=== PATIENT | female | born 1975 | race Caucasian/White ===

== ENCOUNTER → 2021-07-19 08:19 | Outpatient (BNV) | payer OTHER, MEDICAID, SELFPAY | PROVIDERS: PCP Registered Nurse; Referring Provider Allergy & Immunology; Visit Provider Internal Medicine Medical Oncology | DX: D47.2 Monoclonal gammopathy (principal) | CPT/HCPCS: 99204; 99213 ==

== ENCOUNTER 2021-07-25 16:27 | Outpatient (REF) | payer OTHER, SELFPAY ==
--- NOTE | ~2021-07-25 | XR_ITS ---
EXAMINATION: XR SKELETAL SURVEY CLINICAL INFORMATION: Elevated IgG level. COMPARISON: None TECHNIQUE: Whole body bone survey was performed. FINDINGS: SKULL: No lytic or sclerotic process seen. The visualized sinuses and mastoid air cells are well aerated. LATERAL CERVICAL NECK: There is mild straightening of the cervical lordosis. Loss of C5-C6 with mild ventral spondylosis is seen at the C5-C6 and C6-C7 disc levels. No fracture, lytic or sclerotic process seen. CHEST: The lungs are well expanded and clear. The heart size and pulmonary vascularity are normal. No gross bony abnormality is seen. DORSAL SPINE: There is a maintained thoracic kyphosis. The vertebral heights, alignment and disc heights are normal. No visible acute fracture, dislocation or lytic process is seen. The paravertebral soft tissues are normal. No lytic or sclerotic process is seen. LUMBAR SPINE: There is an exaggerated lumbar lordosis. The vertebral heights and alignment are normal. There is mild loss of L5-S1 and L4-L5 disc heights. There is no visible acute fracture, dislocation or lytic process seen. There is minimal dextroscoliosis of the dorsolumbar spine. There is moderate bilateral L5-S1 facet joint hypertrophy and arthropathy. AP PELVIS: There is normal symmetry of the bilateral SI joints and hip joints. No visible fracture or dislocation. BILATERAL FEMORA: There is a small lucency with sclerotic-appearing dc in the femoral neck bilaterally, likely benign cystic changes. No lytic area is seen in the femur to suspect lesions. BILATERAL TIBIAE AND FIBULAE: There is no lytic or sclerotic lesion seen in the tibiae and fibulae. The soft tissues are normal. The ankle mortise is normal. BILATERAL HUMERI: Unremarkable. BILATERAL RADII AND ULNAE: There are no visible lytic or sclerotic lesions seen. No fracture. The soft tissues are normal. XR/XR bone survey IMPRESSION: Unremarkable whole body bone survey.
== END 2021-07-25 16:28 | disposition home or self-care (01) ==
LOC: HO.XRAY 16:27
PROVIDERS: PCP Registered Nurse; Visit Provider Internal Medicine Medical Oncology
DX: D47.2 Monoclonal gammopathy (principal)
CPT/HCPCS: 77075

== ENCOUNTER 2021-07-31 12:27 | Outpatient (REF) | payer OTHER, SELFPAY | END 2021-07-31 12:28 | disposition home or self-care (01) | LOC: HO.LNP 12:27 | PROVIDERS: Visit Provider Internal Medicine Medical Oncology | DX: D47.2 Monoclonal gammopathy (principal) | CPT/HCPCS: 86335 ==

== ENCOUNTER 2021-08-30 15:56 | Outpatient (REF) | payer OTHER, SELFPAY ==
[2021-08-30 16:35] LABS: MANUAL DIFF FLAG NO
[2021-08-30 16:58] LABS: Basophils Percent Auto 0.5 % (0-2); Eosinophils Absolute Auto 0.1 X10*3/uL (0.0-0.4); Eosinophils Percent Auto 1.8 % (0-4); Hemoglobin 11.8 g/dl (12.0-16.0); Imm Gran Abs Auto 0.01 X10*3/uL (0.00-0.03); Imm Gran Pct Auto 0.2 % (0.0-0.4); Lymphocytes Percent Auto 32.2 % (20-40); Mean Corpuscular HGB Conc 33.7 g/dl (31.0-35.0); Mean Corpuscular Hemoglobin 33.4 pg (27.0-33.0); Mean Corpuscular Volume 99.2 fL (80.0-98.0); Mean Platelet Volume 10.4 fL (9.4-12.3); Monocytes Absolute Auto 0.5 X10*3/uL (0.1-1.2); Monocytes Percent Auto 8.8 % (2-11); Neutrophils Absolute Auto 3.5 x10*3/uL (2.0-8.3); Neutrophils Percent Auto 56.5 % (45-73); Platelet Count 248 X10*3/uL (160-400); Red Blood Count 3.53 X10*6/uL (4.20-5.50); Red Cell Distribution Width 13.5 % (11.0-16.0); White Blood Count 6.1 X10*3/uL (4.8-10.8)
[2021-08-30 17:42] LABS: Alanine Aminotransferase 32 U/L (0-31); Albumin Level 4.3 g/dL (3.5-5.0); Alkaline Phosphatase 40 U/L (39-117); Anion Gap 10 (12-20); Aspartate Amino Transferase 23 U/L (5-31); Bilirubin Total 0.3 mg/dL (0.0-1.0); Blood Urea Nitrogen 15 mg/dL (9-16); Calcium 9.1 mg/dL (8.4-10.2); Carbon Dioxide 26 mmol/L (22-29); Chloride 106 mmol/L (96-108); Estimated Glomerular Filt Rate > 60; Glucose Random 95 mg/dL (60-115); Potassium 4.2 mmol/L (3.3-5.1); Sodium 138 mmol/L (135-145); Total Protein 7.8 g/dL (6.5-8.0)
[2021-09-04 13:41] LABS: IgA 45 mg/dL (47-310); IgG 2199 mg/dL (600-1640); IgM 34 mg/dL (50-300)
[2021-09-04 21:12] LABS: Kappa Light Chain, Free Serum 7.1 mg/L (3.3-19.4); Kappa/Lambda Lt Ch Free Ratio 2.22 (0.26-1.65); Lambda Light Chain, Free Serum 3.2 mg/L (5.7-26.3)
== END 2021-08-30 15:57 | disposition home or self-care (01) ==
LOC: HO.LAB 15:56
PROVIDERS: PCP Registered Nurse; Visit Provider Internal Medicine Medical Oncology
DX: D47.2 Monoclonal gammopathy (principal)
CPT/HCPCS: 36415; 80053; 82784; 83521; 85025; 86334

== ENCOUNTER 2021-10-18 15:05 | Outpatient (REF) | payer OTHER, SELFPAY ==
[2021-10-18 15:22] LABS: MANUAL DIFF FLAG NO
[2021-10-18 15:47] LABS: Basophils Percent Auto 0.6 % (0-2); Eosinophils Absolute Auto 0.2 X10*3/uL (0.0-0.4); Eosinophils Percent Auto 2.3 % (0-4); Hematocrit 37.4 % (37.0-47.0); Hemoglobin 12.3 g/dl (12.0-16.0); Imm Gran Abs Auto 0.01 X10*3/uL (0.00-0.03); Imm Gran Pct Auto 0.2 % (0.0-0.4); Lymphocytes Absolute Auto 2.1 X10*3/uL (1.2-4.9); Lymphocytes Percent Auto 32.8 % (20-40); Mean Corpuscular HGB Conc 32.9 g/dl (31.0-35.0); Mean Corpuscular Volume 100.3 fL (80.0-98.0); Mean Platelet Volume 9.9 fL (9.4-12.3); Monocytes Absolute Auto 0.6 X10*3/uL (0.1-1.2); Monocytes Percent Auto 9.6 % (2-11); Neutrophils Absolute Auto 3.5 x10*3/uL (2.0-8.3); Neutrophils Percent Auto 54.5 % (45-73); Platelet Count 263 X10*3/uL (160-400); Red Blood Count 3.73 X10*6/uL (4.20-5.50); Red Cell Distribution Width 13.3 % (11.0-16.0); White Blood Count 6.4 X10*3/uL (4.8-10.8)
[2021-10-18 16:19] LABS: Alanine Aminotransferase 32 U/L (0-31); Albumin Level 4.3 g/dL (3.5-5.0); Alkaline Phosphatase 44 U/L (39-117); Anion Gap 15 (12-20); Aspartate Amino Transferase 26 U/L (5-31); Bilirubin Total 0.3 mg/dL (0.0-1.0); Blood Urea Nitrogen 17 mg/dL (9-16); Calcium 8.9 mg/dL (8.4-10.2); Carbon Dioxide 26 mmol/L (22-29); Chloride 102 mmol/L (96-108); Estimated Glomerular Filt Rate > 60; Glucose Random 85 mg/dL (60-115); Potassium 4.5 mmol/L (3.3-5.1); Sodium 138 mmol/L (135-145); Total Protein 8.3 g/dL (6.5-8.0)
[2021-10-22 14:47] LABS: Kappa Light Chain, Free Serum 8.2 mg/L (3.3-19.4); Kappa/Lambda Lt Ch Free Ratio 2.16 (0.26-1.65); Lambda Light Chain, Free Serum 3.8 mg/L (5.7-26.3)
[2021-10-22 14:56] LABS: IgA 49 mg/dL (47-310); IgG 2430 mg/dL (600-1640); IgM 37 mg/dL (50-300)
== END 2021-10-18 15:06 | disposition home or self-care (01) ==
LOC: HO.LAB 15:05
PROVIDERS: PCP Registered Nurse; Visit Provider Internal Medicine Medical Oncology
DX: D47.2 Monoclonal gammopathy (principal)
CPT/HCPCS: 36415; 80053; 82784; 83521; 85025; 86334

== ENCOUNTER → 2021-11-22 07:47 | Outpatient (BNVA) | payer OTHER, SELFPAY | PROVIDERS: PCP Registered Nurse; Visit Provider Student in an Organized Health Care Education/Training Program | DX: M35.00 Sjogren syndrome, unspecified (principal); I73.00 Raynaud's syndrome without gangrene; R74.01 Elevation of levels of liver transaminase levels | CPT/HCPCS: 99202 ==

== ENCOUNTER 2022-02-26 16:04 | Outpatient (REF) | payer OTHER, SELFPAY ==
[2022-02-26 17:19] LABS: Erythrocyte Sedimentation Rate 4 MM/HR (0-20)
[2022-02-26 17:23] LABS: C Reactive Protein 0.21 mg/dL (< or = 0.50); Rheumatoid Factor < 13.0 IU/mL (<15.0); Thyroid Stimulating Hormone 1.69 uIU/mL (0.32-4.0)
[2022-02-26 18:04] LABS: Appearance Urine Clear; Color Urine Yellow; Glucose Urine UA Negative (Negative); Leukocyte Esterase Urine Negative (Negative); Nitrite Urine Negative (Negative); PH 6.5 (5.0-9.0); Urine Blood Negative (Negative); Urine Ketones Negative (Negative); Urine Protein Negative (Neg-Trace)
[2022-02-26 18:09] LABS: Bacteria Urine 4+ (None Seen); Hyaline Casts Urine 0-2 /LPF (0-2); RBC Urine 0-2 /HPF (0-2); WBC Urine 0-5 /HPF (0-5)
[2022-02-26 18:16] LABS: Creatinine Urine 40.16 mg/dL; Total Protein Urine Random < 7 mg/dL (<12)
[2022-02-27 05:08] LABS: HBS Num1 8.56 mIU/mL (0-7.99); HBc Num1 0.05 S/CO (0.00-0.79); HBsAGNum1 0.27 S/CO (0.00-0.99); Hepatitis A Antibody IgM 0.11 Index (0-0.79); Hepatitis B Core Antibody Nonreactive (Nonreactive); Hepatitis B Surface Antigen Negative (Negative); ~HepC Num1 0.05 S/CO (0.00-0.79); ~Hepatitis A Antibody IgM Nonreactive (Nonreactive); ~Hepatitis C Antibody Nonreactive (Nonreactive)
[2022-02-27 05:58] LABS: HBS Num2 8.87 mIU/mL (0-7.99); HBS Num3 8.12 mIU/mL (0-7.99); ~Hepatitis B Surface Antibody GRAYZONE (Nonreactive)
[2022-02-27 12:48] LABS: Thyroglobulin Antibodies 2 IU/mL (< or = 1); Thyroid Peroxidase Antibodies 1 IU/mL (<9)
[2022-02-27 13:54] LABS: Anti-Centromere B Antibodies <1.0 NEG AI (<1.0 NEG)
[2022-02-27 14:58] LABS: Anti Nuclear Antibody Screen NEGATIVE (NEGATIVE)
[2022-02-27 16:18] LABS: Complement C3 105 mg/dL (83-193)
[2022-02-27 16:52] LABS: Cyclic Citrullinated Peptide <16 UNITS
[2022-02-27 22:19] LABS: Cardiolipin IgG Ab <2.0 GPL-U/mL; Cardiolipin IgM Ab <2.0 MPL-U/mL
[2022-02-28 15:28] LABS: Mitochondrial Antibodies NEGATIVE (NEGATIVE)
[2022-03-02 21:54] LABS: Smooth Muscle Antibody <20 U (<20)
[2022-03-02 22:33] LABS: Liver Kidney Microsomal Ab <=20.0 U (<=20.0)
[2022-03-04 06:58] LABS: Beta-2 Glycoprotein IgA <2.0 U/mL (<20.0); Beta-2 Glycoprotein IgG <2.0 U/mL (<20.0); Beta-2 Glycoprotein IgM <2.0 U/mL (<20.0)
[2022-03-05 12:19] LABS: Anti DNA DS Antibody <1 IU/mL; Antibody to SS-A Antigen <1.0 NEG AI (<1.0 NEG); Antibody to SS-B Antigen <1.0 NEG AI (<1.0 NEG); SM/Ribonucleoprotein Ab <1.0 NEG AI (<1.0 NEG); Scleroderma 70 Antibody <1.0 NEG AI (<1.0 NEG); Smith Protein <1.0 NEG AI (<1.0 NEG)
[2022-03-05 15:39] LABS: PTT (LAC) Screen 36 sec (<=40)
== END 2022-02-26 16:05 | disposition home or self-care (01) ==
LOC: HO.LAB 16:04
PROVIDERS: PCP Registered Nurse; Visit Provider Student in an Organized Health Care Education/Training Program
DX: I73.00 Raynaud's syndrome without gangrene (principal); M35.00 Sjogren syndrome, unspecified; R74.01 Elevation of levels of liver transaminase levels
CPT/HCPCS: 36415; 81001; 84156; 84443; 85597; 85613; 85652; 85730; 86015; 86038; 86039; 86140; 86146; 86147; 86160; 86200; 86225; 86235; 86255; 86256; 86376; 86431; 86704; 86706; 86709; 86800; 86803; 87340

== ENCOUNTER 2022-05-14 07:51 | Outpatient (REF) | payer OTHER, SELFPAY ==
[2022-05-14 08:46] LABS: MANUAL DIFF FLAG NO
[2022-05-14 08:49] LABS: Basophils Absolute Auto 0.1 X10*3/uL (0.0-0.2); Basophils Percent Auto 1.3 % (0-2); Eosinophils Absolute Auto 0.2 X10*3/uL (0.0-0.4); Eosinophils Percent Auto 3.8 % (0-4); Hematocrit 37.1 % (37.0-47.0); Hemoglobin 12.4 g/dl (12.0-16.0); Imm Gran Abs Auto 0.01 X10*3/uL (0.00-0.03); Imm Gran Pct Auto 0.3 % (0.0-0.4); Lymphocytes Absolute Auto 1.6 X10*3/uL (1.2-4.9); Lymphocytes Percent Auto 41.3 % (20-40); Mean Corpuscular HGB Conc 33.4 g/dl (31.0-35.0); Mean Corpuscular Hemoglobin 32.6 pg (27.0-33.0); Mean Corpuscular Volume 97.6 fL (80.0-98.0); Mean Platelet Volume 10.2 fL (9.4-12.3); Monocytes Absolute Auto 0.4 X10*3/uL (0.1-1.2); Monocytes Percent Auto 10.6 % (2-11); Neutrophils Absolute Auto 1.7 x10*3/uL (2.0-8.3); Neutrophils Percent Auto 42.7 % (45-73); Platelet Count 183 X10*3/uL (160-400); Red Cell Distribution Width 12.7 % (11.0-16.0)
[2022-05-14 09:09] LABS: Alanine Aminotransferase 17 U/L (0-31); Albumin Level 3.8 g/dL (3.5-5.0); Alkaline Phosphatase 38 U/L (39-117); Anion Gap 11 (12-20); Aspartate Amino Transferase 19 U/L (5-31); Bilirubin Total 0.6 mg/dL (0.0-1.0); Blood Urea Nitrogen 17 mg/dL (9-16); Calcium 8.7 mg/dL (8.4-10.2); Carbon Dioxide 25 mmol/L (22-29); Chloride 106 mmol/L (96-108); Estimated Glomerular Filt Rate > 60; Glucose Random 92 mg/dL (60-115); Potassium 4.2 mmol/L (3.3-5.1); Sodium 138 mmol/L (135-145); Total Protein 7.2 g/dL (6.5-8.0)
[2022-05-17 12:48] LABS: IgA 51 mg/dL (47-310); IgG 2422 mg/dL (600-1640); IgM 46 mg/dL (50-300)
== END 2022-05-14 07:52 | disposition home or self-care (01) ==
LOC: HO.LAB 07:51
PROVIDERS: Absent Provider Internal Medicine Medical Oncology; PCP Registered Nurse; Visit Provider Student in an Organized Health Care Education/Training Program
DX: D47.2 Monoclonal gammopathy (principal); M35.00 Sjogren syndrome, unspecified; I73.00 Raynaud's syndrome without gangrene; R74.01 Elevation of levels of liver transaminase levels; B00.9 Herpesviral infection, unspecified; A63.0 Anogenital (venereal) warts; Z79.899 Other long term (current) drug therapy
CPT/HCPCS: 36415; 80053; 82784; 85025; 86334; 99212

== ENCOUNTER 2022-12-17 09:05 | Outpatient (REF) | payer OTHER, SELFPAY ==
[2022-12-17 09:50] LABS: MANUAL DIFF FLAG NO
[2022-12-17 09:55] LABS: Basophils Percent Auto 0.8 % (0-2); Eosinophils Absolute Auto 0.1 X10*3/uL (0.0-0.4); Eosinophils Percent Auto 2.9 % (0-4); Hematocrit 38.2 % (37.0-47.0); Hemoglobin 12.8 g/dl (12.0-16.0); Imm Gran Abs Auto 0.01 X10*3/uL (0.00-0.03); Imm Gran Pct Auto 0.2 % (0.0-0.4); Lymphocytes Absolute Auto 1.6 X10*3/uL (1.2-4.9); Lymphocytes Percent Auto 33.2 % (20-40); Mean Corpuscular HGB Conc 33.5 g/dl (31.0-35.0); Mean Corpuscular Hemoglobin 32.7 pg (27.0-33.0); Mean Corpuscular Volume 97.7 fL (80.0-98.0); Mean Platelet Volume 9.9 fL (9.4-12.3); Monocytes Absolute Auto 0.6 X10*3/uL (0.1-1.2); Monocytes Percent Auto 11.3 % (2-11); Neutrophils Absolute Auto 2.5 x10*3/uL (2.0-8.3); Neutrophils Percent Auto 51.6 % (45-73); Platelet Count 228 X10*3/uL (160-400); Red Blood Count 3.91 X10*6/uL (4.20-5.50); Red Cell Distribution Width 12.7 % (11.0-16.0); White Blood Count 4.9 X10*3/uL (4.8-10.8)
[2022-12-17 10:14] LABS: Alanine Aminotransferase 20 U/L (0-31); Albumin Level 4.1 g/dL (3.5-5.0); Alkaline Phosphatase 42 U/L (39-117); Anion Gap 10 (12-20); Aspartate Amino Transferase 18 U/L (5-31); Bilirubin Total 0.4 mg/dL (0.0-1.0); Blood Urea Nitrogen 13 mg/dL (9-16); Calcium 9.1 mg/dL (8.4-10.2); Carbon Dioxide 26 mmol/L (22-29); Chloride 108 mmol/L (96-108); Estimated Glomerular Filt Rate > 60; Glucose Random 78 mg/dL (60-115); Potassium 3.9 mmol/L (3.3-5.1); Sodium 140 mmol/L (135-145); Total Protein 8.1 g/dL (6.5-8.0)
[2022-12-19 12:52] LABS: Beta-2 Microglobulin, Serum 1.32 mg/L (< OR = 2.51)
[2022-12-23 11:33] LABS: IgA 52 mg/dL (47-310); IgG 2662 mg/dL (600-1640); IgM 51 mg/dL (50-300)
== END 2022-12-17 09:06 | disposition home or self-care (01) ==
LOC: HO.LAB 09:05
PROVIDERS: PCP Registered Nurse; Visit Provider Internal Medicine Medical Oncology
DX: D47.2 Monoclonal gammopathy (principal)
CPT/HCPCS: 36415; 80053; 82232; 82784; 83521; 85025; 86334

== ENCOUNTER 2023-05-15 07:53 | Outpatient (AMB) | payer OTHER, SELFPAY ==
[2023-05-15 07:58] VITALS: BP 121/68; PULSE 72; TEMP 36; BMI 25.5
--- NOTE | 2023-05-15 07:58 | A.OFFVIS_ITS ---
Intake Vital Signs 05/15/23 07:58 Height 5 ft 7 in Weight 163 lb 2.273 oz BMI 25.5 BP 121/68 Blood Pressure Location Rt brachial Position Sitting Pulse 72 Pulse Source Palpation Temp 96.8 F Temp Source Temporal Artery Scan Intake Visit Reasons: Sicca/LVM Allergies No Known Allergies Allergy (Verified 12/17/22 13:12) Medication List - Last Reconciled 05/15/23 by Asael Baker MD bupropion HCl 75 mg PO DAILY estradiol-norethindrone acet 0.05-0.14 mg/24 hr 1 patch transdermal 2XW lorazepam (Ativan) 0.5 mg PO DAILY PRN triamcinolone acetonide 0.5% 1 appl topical BID valacyclovir 1 tab PO DAILY HPI HPI Comments History of Present Illness Details 47-year-old female with sicca symptoms r eturns for follow-up. She states that she continues to have intermittent sicca symptoms with dry eyes and dry mouth. Symptoms are usually worse in the week of her period. She uses artificial tears and uses a probiotic for her dry mouth. With mixed results. No skin rashes. States that she will be evaluated by an oral surgeon soon for an implant and will discuss potential lip biopsy to evaluate for Sjogren's Initial history: This is a 46-year-old female with past medical history of anxiety and MGUS who presents for evaluation of sicca symptoms. Over the last 2 years patient has been having multiple infections including herpes simplex, herpes zoster as well as HPV infection. She was diagnosed with MGUS and recently saw a juice packaging machines setter at [facility] and they are planning to do a PET scan and a bone marrow biopsy soon. Over the last 2 years patient has been having dry mouth, she also mentions multiple cavities. Dry mouth is worse in the morning and at night, she has to drink a lot of water throughout the day. She also has dry eyes and has been using artificial tears which helped, but she does not use them every day. She is able to swallow food without drinking water. She started noticing Raynaud symptoms about 7 years ago with her hands change in color to white associated with pain tingling. She would usually put it under warm water and is about to reverse it in less than 20 minutes. Denies any digital ulcers. Denies gangrene. She denies any significant joint pain. Denies any fevers, weight loss, blood or frothy urine. Denies DVT/PE. [facility] Medical History Anxiety MGUS (monoclonal gammopathy of unknown significance) Surgical History No pertinent past surgical history Family History Mother Lung cancer Skin cancer Social History Household Members: Children Housing: House Are you a primary complex care nurse practitioner to a significant other at home: No Do you presently have visiting nurse or other home services: No Patient Tobacco Use Status: Never used Tobacco Second Hand Smoke Exposure: Yes service: No Current occupational status: employed Current occupation: Nurse Review of Systems Eyes Details: uses artificial tears Reports dry eyes ENT Details: dental caries +ve tongue ulcers Reports dry mouth Physical Exam Const General: cooperative, healthy appearing, comfortable, no acute distress and well developed Nutritional Appearance: well nourished Orientation/consciousness: patient oriented x3 Limitations: no limitations HEENT Head: Yes normocephalic and Yes atraumatic Mouth: moist mucous membranes Resp Effort & Inspection: normal respiratory effort and able to speak in complete sentences Auscultation: clear to auscultation bilaterally Skin General skin exam: no rashes or lesions noted Neuro General: patient oriented x3 Extrem Other: Minimal osteoarthritic changes of both hands with no active synovitis Normal nailfold capillaroscopy Assessment & Plan Assessment & Plan (1) Sicca complex: Code(s): M35.00 - Sjogren syndrome, unspecified Plan: This is a 47-year-old female with a past medical history of anxiety and recently diagnosed MGUS who presents for evaluation of multiple complaints including sicca symptoms. Comprehensive serology is unrevealing. Continues to have intermittent dry eyes and dry mouth Advised patient to follow-up with an dietetics professor. She has a follow-up appointment with her oral surgeon, I suggested discussing a lip biopsy Start pilocarpine trial. Patient denies history of glaucoma (2) Raynaud phenomenon: Code(s): I73.00 - Raynaud's syndrome without gangrene Qualifiers: Raynaud?s-associated gangrene presence: without gangrene Qualified Code(s): I73.00 - Raynaud's syndrome without gangrene Plan: Symptoms are relatively mild but they started in her late 30s. There is no history of gangrene or digital ulcers. She has normal nailfold capillaroscopy. CARIE, Scl 70 and centromere antibodies are negative. Advised patient to keep her core and extremity temperature form. Use gloves, and consider using glove warmers or heated gloves if needed. Plan I spent 26 minutes reviewing patient's chart, evaluating patient, placing orders, counseling patient and documenting in the chart Medications: New pilocarpine HCl 5 mg PO TID PRN 30 tabs 1RF Dryness Coding Level of Care Code Est Pt Level 4 (92538) Diagnoses Sicca complex M35.00 Raynaud's phenomenon without gangrene I73.00 Raynaud?s-associated gangrene presence: without gangrene
== END 2023-05-15 08:15 | disposition home or self-care (01) ==
PROVIDERS: PCP Registered Nurse; Visit Provider Student in an Organized Health Care Education/Training Program
DX: M35.00 Sjogren syndrome, unspecified (principal); I73.00 Raynaud's syndrome without gangrene
CPT/HCPCS: 99214

== ENCOUNTER → 2023-05-15 07:53 | Outpatient (BNVA) | payer OTHER, SELFPAY | PROVIDERS: Visit Provider Student in an Organized Health Care Education/Training Program | DX: M35.00 Sjogren syndrome, unspecified (principal); I73.00 Raynaud's syndrome without gangrene | CPT/HCPCS: 99212 ==

== ENCOUNTER 2023-07-14 08:32 | Outpatient (REF) | payer OTHER, SELFPAY ==
[2023-07-14 08:45] LABS: MANUAL DIFF FLAG NO
[2023-07-14 08:51] LABS: Basophils Percent Auto 0.6 % (0-2); Eosinophils Absolute Auto 0.1 X10*3/uL (0.0-0.4); Eosinophils Percent Auto 1.1 % (0-4); Hematocrit 35.9 % (37.0-47.0); Hemoglobin 12.2 g/dl (12.0-16.0); Imm Gran Abs Auto 0.01 X10*3/uL (0.00-0.03); Imm Gran Pct Auto 0.2 % (0.0-0.4); Lymphocytes Absolute Auto 1.9 X10*3/uL (1.2-4.9); Lymphocytes Percent Auto 30.8 % (20-40); Mean Platelet Volume 9.3 fL (9.4-12.3); Monocytes Absolute Auto 0.5 X10*3/uL (0.1-1.2); Monocytes Percent Auto 8.1 % (2-11); Neutrophils Absolute Auto 3.7 x10*3/uL (2.0-8.3); Neutrophils Percent Auto 59.2 % (45-73); Platelet Count 262 X10*3/uL (160-400); Red Blood Count 3.59 X10*6/uL (4.20-5.50); Red Cell Distribution Width 13.4 % (11.0-16.0); White Blood Count 6.3 X10*3/uL (4.8-10.8)
[2023-07-14 09:01] LABS: Alanine Aminotransferase 24 U/L (0-31); Albumin Level 4.2 g/dL (3.5-5.0); Alkaline Phosphatase 38 U/L (39-117); Anion Gap 11 (12-20); Aspartate Amino Transferase 22 U/L (5-31); Bilirubin Total 0.4 mg/dL (0.0-1.0); Blood Urea Nitrogen 9 mg/dL (9-16); Calcium 9.3 mg/dL (8.4-10.2); Carbon Dioxide 26 mmol/L (22-29); Chloride 105 mmol/L (96-108); Estimated Glomerular Filt Rate > 60; Glucose Random 105 mg/dL (60-115); Potassium 3.8 mmol/L (3.3-5.1); Sodium 138 mmol/L (135-145); Total Protein 8.2 g/dL (6.5-8.0)
[2023-07-16 16:09] LABS: Kappa Light Chain, Free Serum 8.1 mg/L (3.3-19.4); Kappa/Lambda Lt Ch Free Ratio 2.79 (0.26-1.65); Lambda Light Chain, Free Serum 2.9 mg/L (5.7-26.3)
[2023-07-17 11:48] LABS: IgA 37 mg/dL (47-310); IgG 2657 mg/dL (600-1640); IgM 40 mg/dL (50-300)
== END 2023-07-14 08:33 | disposition home or self-care (01) ==
LOC: HO.LAB 08:32
PROVIDERS: PCP Registered Nurse; Visit Provider Internal Medicine Medical Oncology
DX: D47.2 Monoclonal gammopathy (principal)
CPT/HCPCS: 36415; 80053; 82784; 83521; 85025; 86334

== ENCOUNTER 2024-08-26 15:50 | Outpatient (REF) | payer OTHER, SELFPAY ==
[2024-08-26 16:06] LABS: MANUAL DIFF FLAG NO
--- OUTSIDE RECORDS SUMMARY | 2024-08-26 16:17 | XMS_ITS | Data Portability ---
Author Organization [facility], MAIN OFFICE Address [address] [place] [address] [address] [place] [address] Assessment Encounter Date Assessment Date Assessment LastModified by Organization Details LastModified Time 02/18/2024 02/18/2024 Spent 60 minutes for evaluation and management, including face to face interaction, review of labs and notes from specialist, discussion and coordination of care. Not available 02/18/2024 11:50:12 06/10/2024 06/10/2024 Spent 70 minutes for evaluation and management, including face to face interaction, review of labs and notes from specialist, discussion and coordination of care. Not available 06/10/2024 10:54:52 Plan of Treatment Reminders Order Date Submit Date Provider Last Modified By Organization Details Last Modified Time Details Appointments ANNUAL EXAM 2025 10:00A M Dr. Cherry Not available Not available Not available Lab HIV (1+2) Ab screen, serum 2024 025 [employer] [facility], [address] [place] [address], [id number], 06/24/2024 16:36:04 lipid panel, serum 2024 025 [employer] [facility], [address] [place] [address], [id number], 06/24/2024 16:42:02 ferritin, serum or plasma 2024 025 [facility], [address] [place] [address], [id number], 06/17/2024 04:06:00 folate, serum 2024 025 [employer] [facility], [address] [place] [address], [id number], 06/17/2024 04:06:00 iron + total iron-bind ing capacity (TIBC), serum 2024 025 [facility], [address] [place] [address], [id number], 06/24/2024 16:48:57 retic count, blood 2024 025 [facility], [address] [place] [address], [id number], 06/17/2024 04:06:00 vitamin B12, serum 2024 025 [facility] [facility], [address] [place] [address], [id number], 06/17/2024 04:06:00 vitamin D, 25-hydrox y, total, serum 2024 025 [facility], [address] [place] [address], [id number], 03/23/2024 22:20:27 Referral dermatolo gist referral - Mother and brother have had melanoma referred to Derm for skin check 2024 025 [facility] Leon MD, [address] , [place], [address], 07/08/2024 04:02:10 Procedures None recorded. Surgeries None recorded. Imaging MAMMO, screening , bilateral - pt is scheduled for september [id number] 025 [facility], [address] [place], [address], 06/10/2024 10:50:23 Medication Orders valacyclo vir 1 gram tablet 2024 025 [facility]acy #1095, [address] [facility], [place], [address], 06/10/2024 10:50:29 Ubrelvy 100 mg tablet 2024 025 [facility]/Pharmacy #1095, [address] [place] [address], [id number], 06/10/2024 10:50:30 estradiol 0.05 mg/24 hr semiweekl y transderm al patch 2024 025 [facility] [address] [place] [address], [id number], 06/10/2024 10:50:29 progester one micronize d 100 mg capsule 2024 025 [facility] [address] [place] [address], [id number], 06/10/2024 10:50:28 Wellbutri n XL 150 mg 24 hr tablet, extended release 2024 025 [facility] [address] [place] [address], [id number], 06/10/2024 10:50:27 albuterol sulfate HFA 90 mcg/actua tion aerosol inhaler 2024 025 [facility] [address] [place] [address], [id number], 02/18/2024 11:56:40 estradiol 0.05 mg/24 hr semiweekl y transderm al patch 2024 025 [facility]/Pharmacy #1095, [address] [place] [address], [id number], 02/18/2024 11:36:25 progester one micronize d 100 mg capsule 2024 025 [facility] [address] [place] [address], [id number], 02/18/2024 11:36:25 Patient TargetsNo targets recorded. Patient Instructions Encounter Date Encounter Id Patient Instructions Last Modified By Organization Details Last Modified Time 06/10/2024 [id number] Patient Health Questionnaire-9* Not available 06/10/2024 10:54:27 CAGE questionnaire* Not available 06/10/2024 10:54:27 Reason for Referral It Support Consultant Referral for F laxmi history of malignant melanoma Mother and brother have had melanomareferred to Derm for skin check Referring Physician: Chan Cherry, Internal Medicine, Encounter Date: 06/10/2024 Results Created Date Observation Date Name Description Value Unit Range Abnormal Flag Note LastModifiedBy Organization Detail LastModifiedTime 03/23/1903/23/2024 VITAM IN D,25- OH,TO [place],I A vitamin D,25-oh,tota l,ia 55 NG/mL 30-100 normal Vitam in D Statu s 25-OH Vitam in D: Defic iency : <20 ng/mL Insuf ficie ncy: 20 - 29 ng/mL Optim al: > or = 30 ng/mL For 25-OH Vitam in D testi ng on patie nts on D2-verma pplem entat ion and patie nts for whom quant itati on of D2 and D3 fract ions is requi red, the [facility] Assur eD(TM ) 25-OH VIT D, (D2,D 3), LC/MS /MS is recom santiago d: order code 83035 (kevan ents >2yrs ). See Note 1 Note 1 For addit ional infor pinky escobar refer to http: //[facility] larissa mazariegos.Tereso Ayalaia gnost ics.c om/fa q/FAQ 199 (This link is being provi ded for infor darion richey/ ada marinelli purpo ses only. ) Not Available [facility] [address] [place] [address], [place], [address], 03/23/2024 22:20:27 Result Notes None recorded. Medical Equipment None Reported. Allergies No known drug allergies Medications Name Sig Start Date Stop Date Status Note LastModified by Organization Details LastModified Time pilocarpine 5 mg tablet TAKE 1 TABLET BY MOUTH 3 TIMES A DAY NEEDED FOR DRYNESS active Not Available Not Available No t Available doxycycline hyclate 100 mg capsule TAKE 1 CAPSULE BY MOUTH TWICE A DAY active Not Available Not Available No t Available triamcinolo ne acetonide 0.5 % topical cream APPLY TOPICALLY EXTERNALL Y NIGHTLY AT BEDTIME 30 active Not Available Not Available No t Available azithromyci n 250 mg tablet TAKE 2 TABLETS BY MOUTH TODAY, THEN TAKE 1 TABLET DAILY FOR 4 DAYS DIRECTED active Not Available Not Available No t Available valacyclovi r 1 gram tablet TAKE 1 TABLET BY MOUTH EVERY 12 HOURS active Not Available Not Available No t Available estradiol 0.05 mg/24 hr semiweekly transdermal patch Apply 1 patch twice a week by transderm al route. 2024 active Not Available Not Available Not Avai lable lorazepam 0.5 mg tablet TAKE 1 TAB ORALLY TWICE DAILY NEEDED FOR ANXIETY SPARING USE 15 active Not Available Not Available No t Available bupropion HCl 75 mg tablet TAKE 2 TABLETS BY MOUTH TWICE A DAY FOR 30 DAYS 06/10 completed Not Available Not Available Not Available hydroxychlo roquine 200 mg tablet TAKE 1 TABLET BY MOUTH EVERY DAY active Not Available Not Available No t Available methylpredn isolone 4 mg tablets in a dose pack TAKE DIRECTED active Not Available Not Available No t Available ondansetron 4 mg disintegrat ing tablet TAKE 1 TABLET BY MOUTH EVERY 8 HOURS NEEDED FOR NAUSEA active Not Available Not Available No t Available progesteron e micronized 100 mg capsule Take 1 capsule every day by oral route for 30 days. 2024 active Not Available Not Available Not Avai lable Ventolin HFA 90 mcg/actuati on aerosol inhaler INHALE 2 PUFFS EVERY 4 HOURS BY INHALATIO N ROUTE. active Not Available Not Available No t Available Wellbutrin XL 150 mg 24 hr tablet, extended release Take 1 tablet every day by oral route. 2024 active Not Available Not Available Not Avai lable tinidazole 250 mg tablet TAKE 1 TABLET BY MOUTH TWICE A DAY WITH FOOD 2 CONSECUTI VE DAYS/WEEK active Not Available Not Available No t Available Ubrelvy 100 mg tablet TAKE 1 TABLET BY MOUTH EVERY DAY active Not Available Not Available No t Available Vitals Date Recorded Body height Heart rate Respiratory rate Body mass index (BMI) Body weight Oxygen saturation Oxygen saturation in Arterial blood by Pulse oximetry Systolic And Diastolic Provider Name and Address Organization Details Last Updated DateTime 5 170.18 cm 75 /min 12 /min 24.6 kg/m2 02506 g 98 % 98 % 110/60 mm[Hg] Chan Cherry DO [address], [place], [phone], [facility] 5 11:09:08 Date Recorded Body height Heart rate Respiratory rate Body mass index (BMI) Body weight Oxygen saturation Oxygen saturation in Arterial blood by Pulse oximetry Heart rate Systolic And Diastolic Provider Name and Address Organization Details Last Updated DateTime 5 170.18 cm 70 /min 12 /min 24.3 kg/m2 72139.8 2 g 98 % 98 % 70 /min 110/65 mm[Hg] Chan Cherry DO [address] [place] [address] [address], [place], [address], [place] [facility] 5 10:16:32 Date Recorded Respiratory rate Body weight Oxygen saturation Oxygen saturation in Arterial blood by Pulse oximetry Systolic And Diastolic Provider Name and Address Organization Details Last Updated DateTime 5 12 /min 15936.2 6 g 99 % 99 % 110/60 mm[Hg] Chan Cherry DO [address] [place] [address] [address], [place], [phone], [place] [facility] 5 12:40:00 Social History None recorded. Functional Status None recorded. Mental Status None recorded. Family History Nothing Reported. Medical History No medical history recorded. Gynecological HistoryNo gynecological history recorded. Obstetrics History GPAL:G 0 P 0 0 0 0 Past Encounters Encounter ID Performer Location Encounter Start Date Encounter Closed Date Diagnosis/Indication Diagnosis SNOMED-CT Code Diagnosis ICD10 Code Diagnosis Note [id number] Chan Cherry DO MAIN OFFICE [address] [facility] [address] [place] [address] 02/18/2024 11:00:52 03/09/2024 11:32:54 Herpes simplex 22424113 B00.9 Recurrent HSV 1 in genital areaShe has has MGUS and is immunodefi cient and she is placed on 1 gram valtrax Monoclonal gammopathy of uncertain significance 294175199 D47.2 Has been dx MGUS in 2021 after she kept having recurrent HSV1 and it happened on her nose and involved the eyethen she kept getting sick and was noted to have M Uriah is followed by hematology in [place] and Riya Diamond is being monitored and her hematologi st yuliya Portillo is getting labs every 3 months at this timeHer labs are fluctuatin g and she need monitoring for possible MMPt reports 7 drinks per week. Strongly urged pt to completely stop ETOH.Labs from oct at [facility] were reviewed pt getting more labs done next month by oncologist Pt to bring recordslab s were oct at [facility] were reviewedNo new labs needed Anemia 453402216 D64.9 Iron studies in nov 2023 stableHct is 35Pt is f/u oncologist for MGUS Hormone re placement therapy 049544850 Z79.890 Has been on HRT for the past 2 yearsShe still has her periods which are painful but HRT helpsPt is due for a mammo soon which she says she has an order forPt to bring records History of Lyme disease 665599281 Z86.19 Has been diagnosed with chronic effects of lyme infectionH as had infection for the past 2 years that shows up as joint pain ( back and knees) and fatigue.Sh e will do 4 months abx ordered by Tomasa Price (doxy 100mg BID, tinidizole 2x per week.She already did 4 months of abxPt is on anti-infla mmatory diet including Dental caries 54052537 K 02.9 has many carriesShe has had low Vit D takes vit DShe wants to check levels and will pay out of pocket if not covered Raynaud's disease 881277 006 I73.00 Both hands and feetPt keeps them warm and uses heat pad nightStabl e at this time Dry eyes 207108598 H04.1 23 Reports dry eyes for a few yearsWas seen by rheumatolo gist and ophthalmol ogistSjorn was ruled outEye drops help 2-[address] to be avoidedTak es fish oil nightlyLim it screen timeAdvise d humidifier at nightPt to bring records Exercise-i nduced asthma 61349103 J45.990 For many yearsNot used her Inh for long timeshe never smoked [id number] Chan Cherry DO MAIN OFFICE [address] [facility] [address] [place] [address] 06/10/2024 10:02:18 06/10/2024 13:19:02 Active or passive immunization 116960062 Z23 No flu or COVID vaccineCan 't recall when was the last TdapPt to bring records Drug therapy finding 309 325932 Z79.890 Has been on HRT for the past 3 yearsShe still has her periods which are becoming lighterPt is mammo in septemberPt to bring records Hormone re placement therapy 695716297 Z79.890 Has been on HRT for the past 2 yearsShe still has her periods which are painful but HRT helpsPt is due for a mammo soon which she says she has an order forPt to bring records6 months supply given pt to RTO in 6months Genital he rpes simplex 70737651 A60.00 due to MGUS she gets flair ups despite being on valcyclovi r6 months supply given pt to RTO in 6months Migraine 44434377 G43.90 9 Pt is on Ubrelvy for ROWAN at least 2-3 times per monthHEr ROWAN are improving as she is getting allergy shots (Dr York in [facility]) Screening for malignant neoplasm of colon 571285650 Z12.11 [facility] Screening mammography 24 282717 Z12.31 Her HOSPITAL MANAGER has ordered mammo at [facility] which is due in september General ex amination of patient 056753924 Z00.01 No GERD, no N/V/D, no blood or mucus in stool, no wt loss. no melena, no abdominal pain.No fever or wt loss or night sweats.No ROWAN, dizziness, fall, weakness or change in vision.No hearing loss.No lumps or bumps in neck, arm pits or groinNo rashes or skin lesions.No CP or QUIJANO.No cough or SOB.No back pain or joint pain.Repor ts some depression and anxiety but no Si or HIPHQ 9 3CAGE score 1has cut back on ETOH and drinks 2-3 per weekendNo potNo cigAdvised pt to eat less simple carbs and make sure his diet includes healthy fats and proteins and complex carbs.Advi sed use of certain supplement s such Vit D3+ K2, B12, Mag and fish oil, 2-3 times per week.Daily exercise was recommende d.Advised pt to use mineral sunscreen. SPF shirt, hats and sunglasses .Monthly breast self exam (1 week after period) was jes eddy.Eye exam by [facility] t once a year. she is due for [facility] tTick safety was reviewed (tick check and use of permethrin on clothing). Labs ordered [place] at [facility] were reviewed 05/19/24only chronic anemia due to MGUS otherwise normalSlip given for [facility] Anxiety 79265313 F41.9 06/10/24has situationa l anxietyRep orts issues with concentrat ionShe had been on wellbutrin in the past but felt caused more anxiety but that was short actingWill try long actingpt exercisesh as cut back on her EETOH intakeDoes n't have a therapist at this time.jossy de la cruz her BS in nursings [facility] Healthhe has MGUS that makes her anxiousPHQ 9 score is 3 with poor concentrat ion and talking fastPt might have undiagnose d ADHDTherap y, exercise, meditation , 15 min sun exposure per day, in sugar intake and simple carbs can be helpful.wi ll start long acting wellbutrin and f/u in 1 monthpt has had h/o MGUS and anemia and B12 def in the pastSlip given for [facility] lab Routine gy necologic examination 002107502 Z01.419 last Pap was last yearLast Pap was normal in 2023+ h/o abnormal pap about 6 years ago but she is still HPV posNext pap is due in 09/2024 by GYNShe is on HRT by meSexually active with male partner. Monogamous relationsh ip with past 1 yearPeriod s are getting pathology manager on HRTDenies sexual dysfunctio n. Monoclonal gammopathy of uncertain significance 541879875 D47.2 she f/[place] [facility] and riya arenasLabs were reviewed at [facility] Has been dx MGUS in 2021 after she kept having recurrent HSV1 and it happened on her nose and involved the eyethen she kept getting sick and was noted to have M spikeShe is followed by hematology in [place] and Riya ChavoFlipedd is being monitored and her hematologi st communicat eSedd is getting labs every 3 months at this timeHer labs are fluctuatin g and she need monitoring for possible MMPt reports 7 drinks per week. Strongly urged pt to completely stop ETOH.Labs from nov at [facility] were reviewed pt getting more labs done next month by oncologist Pt to bring recordslab s were oct at [facility] were reviewedNo new labs needed Family his tory of malignant melanoma 176308640 Z80.8 Mother and brother have had melanomare ferred to Derm for skin check Health Concerns Section Related Observation LastModified by Organization Detai ls LastModified Time None Recorded Concern Status LastModified by Organization Details LastModified Time None Recorded Advance Directives Directive None Recorded Payers Insurance Date Sequence Insurance Name Policy Number Policy Martinez Covered Member ID Martinez Member ID Guarantor Name 08/22/2024 1 [facility] [place] [facility] [employer] ([id number]) [id number] Sheyla Adams [id number] Sheyla Adams Notes Date Note Type Note Provider Name and Address Organization Details Recorded Time 02/18/2024 text/html Has been dx MGUS in 2021 after she kept having recurrent HSV1 and it happened on her nose and involved the eyethen she kept getting sick and was noted to have Maral Kruse is followed by hematology in [place] and Riya Diamond is being monitored and her assembler arranger Richardson is getting labs every 3 months at this timeHer labs are fluctuating and she need monitoring for possible MMPt reports 7 drinks per week. Strongly urged pt to completely stop ETOH.Labs from oct at [facility] were reviewed pt getting more labs done next month by oncologistPt to bring records Chan Cherry DO [address], [place], [address], [place] [facility] 02/18/2024 15:14:19 06/10/2024 text/html See A/P Chan Cherry DO [address] [facility] [address], [place], [address], [place] [facility] 06/10/2024 10:58:01 OBGyn Episode No OBEpisode recorded.
[2024-08-26 17:07] LABS: Hematocrit 34.0 % (37.0-47.0); Hemoglobin 11.2 g/dl (12.0-16.0); Imm Gran Abs Auto 0.01 X10*3/uL (0.00-0.03); Imm Gran Pct Auto 0.2 % (0.0-0.4); Lymphocytes Absolute Auto 1.8 X10*3/uL (1.2-4.9); Mean Corpuscular HGB Conc 32.9 g/dl (31.0-35.0); Mean Corpuscular Hemoglobin 32.6 pg (27.0-33.0); Mean Corpuscular Volume 98.8 fL (80.0-98.0); NRBC Abs Auto 0.000 X10*3/uL (0.0-0.012); NRBC Pct Auto 0.0 /100WBC (0.0-0.2); Platelet Count 203 X10*3/uL (160-400); Red Blood Count 3.44 X10*6/uL (4.20-5.50); White Blood Count 4.9 X10*3/uL (4.8-10.8)
[2024-08-26 17:31] LABS: Alanine Aminotransferase 23 U/L (0-31); Albumin Level 4.4 g/dL (3.5-5.0); Alkaline Phosphatase 36 U/L (39-117); Anion Gap 8 (12-20); Aspartate Amino Transferase 21 U/L (5-31); Blood Urea Nitrogen 11 mg/dL (9-16); Calcium 8.9 mg/dL (8.4-10.2); Carbon Dioxide 27 mmol/L (22-29); Chloride 108 mmol/L (96-108); Estimated Glomerular Filt Rate > 60; Potassium 3.9 mmol/L (3.3-5.1); Sodium 139 mmol/L (135-145); Total Protein 8.2 g/dL (6.5-8.0)
[2024-08-27 10:04] LABS: Kappa/Lambda Lt Ch Free Ratio 2.41 (0.26-1.65)
== END 2024-08-26 15:51 | disposition home or self-care (01) ==
LOC: HO.LAB 15:50
PROVIDERS: PCP Hospitalist; Visit Provider Internal Medicine Medical Oncology
DX: D47.2 Monoclonal gammopathy (principal)
CPT/HCPCS: 36415; 80053; 82784; 83521; 85025; 86334